=== PATIENT | female | born 1980 | race Caucasian/White ===

== ENCOUNTER 2017-02-21 00:08 | Emergency (ER) | payer MEDICAID ==
[2017-02-21 00:30] VITALS: BP 100/74; PULSE 84; RESP 19; TEMP 98; O2SAT 100
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
== END 2017-02-21 00:30 | disposition home or self-care (01) ==
LOC: MERGE 00:08 → H.ER 00:08
DX: Z71.1 Person with feared health complaint in whom no diagnosis is made (principal)